=== PATIENT | male | born 2000 | race Caucasian/White ===

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

== ENCOUNTER 2022-04-18 02:02 | Emergency (ER) | payer MEDICAID, OTHER ==
[2022-04-18] MEDS ORDERED: BOOSTRIX/ADACEL VACCINE (DIPHTH/PERTUSS/ACELL/TETANUS) 0.5ML SYR IM ONE (05:20)
[2022-04-18] MEDS ORDERED: LIDOCAINE 1% MDV 20ML VIAL SC ONE (05:20)
[2022-04-18] MEDS ORDERED: BUPIVACAINE HCL 0.5% 30ML VIAL SC ONE (05:20)
[2022-04-18 07:08] VITALS: BP 114/65
[2022-04-18] MEDS ORDERED: ACET-897 PO (07:08)
== END 2022-04-18 07:28 | disposition home or self-care (01) ==
LOC: M ED 02:02 → EDBD 02:02 → M ED 07:28
DX: S51.811A Laceration without foreign body of right forearm, initial encounter (principal); S61.412A Laceration without foreign body of left hand, initial encounter; S61.411A Laceration without foreign body of right hand, initial encounter; W25.XXXA Contact with sharp glass, initial encounter; Y92.009 Unspecified place in unspecified non-institutional (private) residence as the place of occurrence of the external cause; Y93.89 Activity, other specified; Y99.9 Unspecified external cause status
CPT/HCPCS: 12002; 73130; 90471; 90715; 99284; S0020

== ENCOUNTER → 2023-06-20 | Outpatient (REF) | payer OTHER, BC ==
[~2023-06-20] MED LIST: ACET-897 PO
[2023-06-20 12:29] LABS: BASO % 0.3 % (0.0-1.0); EOS # 0.7 10^3/uL (0.0-0.5); EOS % 9.3 % (0.0-3.0); HEMATOCRIT 39.9 % (42.0-52.0); HEMOGLOBIN 13.7 g/dl (13.5-17.5); LYMPH # 3.3 10^3/uL (1.5-5.0); LYMPH % 44.9 % (24.0-44.0); MEAN CORPUSCULAR HEMOGLOBIN 29.5 pg (27.0-33.0); MEAN CORPUSCULAR HGB CONC 34.3 g/dl (32.0-36.5); MONO # 0.7 10^3/uL (0.0-0.8); MONO % 9.6 % (2.0-8.0); NEUTROPHILS # 2.7 10^3/uL (1.5-8.5); NEUTROPHILS % 35.6 % (36.0-66.0); PLATELET COUNT, AUTOMATED 197 10^3/uL (150-450); RED BLOOD COUNT 4.64 10^6/uL (4.30-6.10); WHITE BLOOD COUNT 7.4 10^3/uL (4.0-10.0)
[2023-06-20 12:55] LABS: ALBUMIN 3.6 G/DL (3.2-5.2); ALKALINE PHOSPHATASE 70 U/L (46-116); ALT/SGPT 24 U/L (7.0-40); AST/SGOT 20 U/L (<34); BILIRUBIN,TOTAL 0.3 MG/DL (0.3-1.2); BLOOD UREA NITROGEN 12 MG/DL (9-23); CALCIUM LEVEL 8.8 MG/DL (8.5-10.1); CARBON DIOXIDE LEVEL 30 MMOL/L (20-31); CHLORIDE LEVEL 108 MMOL/L (98-107); CHOLESTEROL LEVEL 121 MG/DL (<200); CHOLESTEROL RISK RATIO 3.08 (<5); CREATININE FOR GFR 0.83 MG/DL (0.70-1.30); GLOMERULAR FILTRATION RATE > 60.0 (>60); GLUCOSE, FASTING 101 MG/DL (60-100); HDL CHOLESTEROL 39.2 MG/DL (>40); LDL CHOLESTEROL 55.8 MG/DL (<100); MAGNESIUM LEVEL 1.9 MG/DL (1.8-2.4); NON-HDL-C 81.8 MG/DL; POTASSIUM SERUM 4.1 MMOL/L (3.5-5.1); SODIUM LEVEL 140 MMOL/L (136-145); TOTAL PROTEIN 6.2 G/DL (5.7-8.2); TRIGLYCERIDES LEVEL 130 MG/DL (<150)
[2023-06-20 12:57] LABS: THYROID STIMULATING HORMONE 1.944 uIU/ML (0.55-4.78); TOTAL 25(OH) VITAMIN D 25.6 NG/ML (20.0-100.0)
[2023-06-20 13:31] LABS: HEMOGLOBIN A1c 5.2 % (4.0-6.0)
== END ==
LOC: M LAB REF 11:39
PROVIDERS: ATTEND Nurse Practitioner Family
DX: E66.9 Obesity, unspecified (principal); E55.9 Vitamin D deficiency, unspecified

== ENCOUNTER 2023-09-29 11:52 | Emergency (ER) | payer BC, MEDICAID ==
[~2023-09-29] VITALS: Ht 167.6 cm; Wt 100.8 kg
[2023-09-29 15:33] LABS: BASO % 0.1 % (0.0-1.0); EOS # 0.5 10^3/uL (0.0-0.5); EOS % 5.4 % (0.0-3.0); HEMATOCRIT 42.9 % (42.0-52.0); HEMOGLOBIN 14.8 g/dl (13.5-17.5); LYMPH # 3.5 10^3/uL (1.5-5.0); LYMPH % 39.3 % (24.0-44.0); MEAN CORPUSCULAR HEMOGLOBIN 29.5 pg (27.0-33.0); MEAN CORPUSCULAR HGB CONC 34.5 g/dl (32.0-36.5); MEAN CORPUSCULAR VOLUME 85.6 fl (80.0-96.0); MONO # 0.8 10^3/uL (0.0-0.8); NEUTROPHILS # 4.1 10^3/uL (1.5-8.5); PLATELET COUNT, AUTOMATED 211 10^3/uL (150-450); RED BLOOD COUNT 5.01 10^6/uL (4.30-6.10); WHITE BLOOD COUNT 8.9 10^3/uL (4.0-10.0)
[2023-09-29 15:51] LABS: ALBUMIN 4.1 G/DL (3.2-5.2); ALKALINE PHOSPHATASE 72 U/L (46-116); ALT/SGPT 30 U/L (7.0-40); AST/SGOT 17 U/L (<34); BILIRUBIN,TOTAL 0.6 MG/DL (0.3-1.2); BLOOD UREA NITROGEN 17 MG/DL (9-23); CALCIUM LEVEL 9.1 MG/DL (8.5-10.1); CARBON DIOXIDE LEVEL 29 MMOL/L (20-31); CHLORIDE LEVEL 107 MMOL/L (98-107); CK-MB VALUE MASS 2.3 NG/ML (<3.6); CPK CREATINE PHOSPHOKINASE 247 U/L (46-171); CREATININE FOR GFR 0.84 MG/DL (0.70-1.30); GLOMERULAR FILTRATION RATE > 60.0 (>60); GLUCOSE, FASTING 92 MG/DL (60-100); MB/CK RELATIVE INDEX 0.93 (< OR =4); POTASSIUM SERUM 4.1 MMOL/L (3.5-5.1); SODIUM LEVEL 141 MMOL/L (136-145); TOTAL PROTEIN 6.7 G/DL (5.7-8.2)
[2023-09-29 15:52] LABS: INR 1.09; PROTHROMBIN TIME 13.8 SECONDS (12.5-14.5)
[2023-09-29 16:33] VITALS: TEMP 97.4
[2023-09-29 18:21] LABS: CK-MB VALUE MASS 2.3 NG/ML (<3.6)
[2023-09-29 18:23] LABS: MB/CK RELATIVE INDEX 1.07 (< OR =4)
[2023-09-29 18:38] VITALS: BP 122/74; O2SAT 98
== END 2023-09-29 18:39 | disposition home or self-care (01) ==
LOC: M ED 11:52
DX: R00.2 Palpitations (principal); R07.2 Precordial pain; F41.9 Anxiety disorder, unspecified; F32.A Depression, unspecified; F17.210 Nicotine dependence, cigarettes, uncomplicated; F12.10 Cannabis abuse, uncomplicated; F10.10 Alcohol abuse, uncomplicated; Z91.013 Allergy to seafood; Z79.1 Long term (current) use of non-steroidal anti-inflammatories (NSAID)